=== PATIENT | male | born 1970 | race African-American/Black ===

== ENCOUNTER 2021-02-01 19:57 | Emergency (ER) | payer MEDICAID ==
[~2021-02-01] VITALS: Ht 172.7 cm; Wt 88.0 kg
[2021-02-01] MEDS ORDERED: IBUPROFEN 600MG TABLET PO ONE (21:30)
[2021-02-01] MEDS ORDERED: IBUP-2029 MT (21:39)
[2021-02-01] MEDS ORDERED: ALBU6.7H9 INH (21:39)
[2021-02-01] MEDS ORDERED: AZIT250T12 MT (21:39)
[2021-02-01] MEDS ORDERED: AZITHROMYCIN 500 MG TABLET PO NR (21:45)
[2021-02-01] MEDS ORDERED: ALBUTEROL 6.7GM HFA INHALER ORI NR (21:45)
[2021-02-01] MEDS ORDERED: DEXAMETHASONE 4MG TABLET PO NR (21:45)
[2021-02-01 21:53] VITALS: BP 116/61
== END 2021-02-01 22:37 | disposition home or self-care (01) ==
LOC: ER 20:54
DX: U07.1 COVID-19 (principal); J12.82 Pneumonia due to coronavirus disease 2019; B34.9 Viral infection, unspecified
CPT/HCPCS: 71045; 99284; C9803; J8540; U0003; U0005

== ENCOUNTER 2022-08-17 18:10 | Emergency (ER) | payer MEDICAID ==
[~2022-08-17] VITALS: Ht 167.6 cm; Wt 90.0 kg
[~2022-08-17 18:10] MED LIST: ALBU6.7H3 INH; AZIT250T12 MT; IBUP-2029 MT
[2022-08-18] MEDS ORDERED: ALBUTEROL (0.083%) 2.5MG/3ML NEB HHN STA (00:16)
[2022-08-18] MEDS ORDERED: ALBU6.7H3 INH (01:07)
[2022-08-18] MEDS ORDERED: AZIT250T MT (01:07)
[2022-08-18 02:14] VITALS: BP 133/85
== END 2022-08-18 02:17 | disposition home or self-care (01) ==
LOC: ER 18:20
DX: R05.9 Cough, unspecified (principal); R09.81 Nasal congestion; J18.9 Pneumonia, unspecified organism; J45.909 Unspecified asthma, uncomplicated
CPT/HCPCS: 71045; 94640; 99283; Z7610